=== PATIENT | female | born 1955 | race African-American/Black ===

== ENCOUNTER 2019-06-27 19:34 | Emergency (ER) | payer OTHER ==
--- OUTSIDE RECORDS SUMMARY | 2019-06-27 19:36 | XMS REPORT | Summary of Care ---
:[address] [facility] Address [address] [place] [address] Care Team Providers Name Role Phone Praful Coker MD Primary Care Provider Reason for Referral Radiology Services (Routine) Status Reason Specialty Diagnoses / Referred By Referred To Procedures Contact Contact Closed Diagnostic Diagnoses Breast screening Manny, Jason Radiology Procedures BI SELF-REFERRED SCREENING TOMOSYNTHESIS BILATERAL B [address] [place] [address] Radiology Services (Routine) Status Reason Specialty Diagnoses / Referred By Referred To Procedures Contact Contact Closed Diagnostic Diagnoses Breast screening Manny, Jason Radiology Procedures BI SELF-REFERRED SCREENING TOMOSYNTHESIS BILATERAL B [address] [place] [place] [address] Reason for Visit Radiology Services (Routine) Status Reason Specialty Diagnoses / Referred By Referred To Procedures Contact Contact Closed Diagnostic Diagnoses Breast screening Manny, Jason Radiology Procedures BI SELF-REFERRED SCREENING TOMOSYNTHESIS BILATERAL B [address] [place] [place] [address] Encounter Details Date Type Department Care Team Description 01/01/2019 Hospital Encounter [facility] Radiology Arrived [facility] [address] [place] [address] [place] [address] [place] [phone] Allergies Not on Filedocumented as of this encounter (statuses as of 01/02/2019) Medications Not on filedocumented as of this encounter (statuses as of 01/02/2019) Active Problems Not on filedocumented as of this encounter (statuses as of 01/02/2019) Social History Tobacco Use Types Packs/Day Years Used Date Never Assessed Sex Assigned at Date Recorded Not on file Job Start Date Occupation Industry Not on file Not on file Not on file Travel History Travel Start Travel End No recent travel history available. documented as of this encounter Last Filed Vital Signs Not on filedocumented in this encounter Plan of Treatment Health Maintenance Due Date Last Done Comments HEPATITIS C (HCV) SCREEN 1955 DTaP,Tdap,and Td Vaccines (1 - Tdap) 1972 COLONOSCOPY 2003 Zoster Recombinant Vaccine (SHINGRIX) 2003 (1 of 2) Medicare Wellness Visit 2018 Osteoporosis Screening 2018 PNEUMOCOCCAL VACCINES 65+ (1 of 2 - 2018 PCV13) MAMMOGRAM 12/05/2018 12/05/2017, 11/28/2016, 11/25/2015 INFLUENZA VACCINE (#1) 2018 documented as of this encounter Procedures Procedure Name Priority Date/Time Associated Comments Diagnosis BI SELF-REFERRED Routine 01/01/2019 10:35 Breast screening Results for this SCREENING AM CDT procedure are in TOMOSYNTHESIS the results BILATERAL section. documented in this encounter Results BI SELF-REFERRED SCREENING TOMOSYNTHESIS BILATERAL (01/01/2019 10:35 AM CDT) Specimen Narrative Performed At Examination: PACS BI SELF-REFERRED SCREENING TOMOSYNTHESIS BILATERAL History: Patient is 63 year old and is seen for:Routine .Hormone history includes other. No relevant surgical history has been documented for this patient. No relevant medical history has been documented for this patient. Computer-aided detection (CAD) utilized. Comparisons: 12/05/2017 BI SCREENING TOMOSYNTHESIS BILATERAL (No Change), 11/28/2016 SCREENING DIGITAL BREAST ADELAIDA (No Change), and 11/25/2015 DIGITAL MAMMOGRAM, SCREENING (No Change) Findings: The breasts are almost entirely fatty. Left There is an intramammary lymph node seen in the upper outer quadrant of the left breast in the posterior depth. Compared to the previous study, there are no significant changes. There are amorphous calcifications in a grouped distribution seen in the upper central region of the left breast in the middle depth. Compared to the previous study, there are no significant changes. Right There are rim calcifications seen in the right breast in the anterior depth. Compared to the previous study, there are no significant changes. Impression: No signs of malignancy. Recommendation: Annual mammographic follow-up - Left Annual mammographic follow-up - Left Annual mammographic follow-up - Right BI-RADS Category: Both 2 - Benign Performing Organization Address City/State/Zipcode Phone Number PACS documented in this encounter Visit Diagnoses Diagnosis Breast screening Breast screening, unspecified documented in this encounter Insurance Payer Benefit Plan / Subscriber ID Effective Dates Phone Address Type Group HUMANA - HUMANA [id number] 2018-[facility] Medicare Adv MANAGED MEDICARE ERS t O MEDICARE documented as of this encounter
--- OUTSIDE RECORDS SUMMARY | 2019-06-27 19:36 | XMS REPORT ---
:1955 Author Organization [facility] Address [address] [place] [address] Dr. Das[address] [place] [address] Care Team Providers Name Role Phone Unavailable Unavailable Unavailable Problems This patient has no known problems. Allergies, Adverse Reactions, Alerts This patient has no known allergies or adverse reactions. Medications This patient has no known medications.
[2019-06-27] MEDS ORDERED: NA CHLORIDE 0.9% 1,000 ML ONE (20:01)
[2019-06-27 20:15] LABS: Absolute Lymphocytes (CBC) 2.7 K/uL (0.7-4.9); Basophils % 0.9 % (0-1.3); Hematocrit 38.9 % (36.0-45.0); Lymphocytes % 36.5 % (15.3-44.8); MPV 10.5 fL (7.6-11.3); RBC Red Blood Cell Count 4.36 M/uL (3.86-4.86)
[2019-06-27 20:47] LABS: BUN Blood Urea Nitrogen 22 mg/dL (7-18); Bicarbonate 28 mmol/L (21-32); Sodium Level 132 mmol/L (136-145)
[2019-06-27 20:48] LABS: Potassium 4.2 mmol/L (3.5-5.1)
[2019-06-27 20:50] LABS: Glucose Level 641 mg/dL (74-106)
[2019-06-27] MEDS ORDERED: INSULIN -REGULAR HUMAN 50 UNIT/0.5 ML ML ONE ×2 (20:57→22:28)
[2019-06-27 21:21] LABS: Urine Blood NEGATIVE (NEG); Urine Glucose 2+ (NEG); Urine Protein NEGATIVE (NEG); Urine pH 5.5 (5.0-7.0)
[2019-06-27] MEDS ORDERED: NA CHLORIDE 0.9% 500 ML ONE (22:28)
[2019-06-27 23:39] LABS: Potassium 3.7 mmol/L (3.5-5.1)
--- NOTE | 2019-06-27 23:56 | ER ---
Nurse's Notes [facility] Name: Cristal Felder Age: 64 yrs Sex: Female : 1955 Arrival Date: 06/27/2019 Time: 19:38 Bed 8 Private MD: Praful Stevens R Diagnosis: Type 2 diabetes mellitus with hyperglycemia;Patient's intentional underdosing of medication regimen for other reason Presentation: 06/26 19:40 Chief complaint: Patient states: Sugar has been high for past two weeks, intermittently ll1 taking Metformin and glyburide. States her sugar read high today. No N/V/D. + urinary frequency. No fever. Coronavirus screen: The patient has NOT traveled to a country currently being monitored by the CDC within the last 14 days. Proceed with normal triage procedures. Ebola Screen: Patient denies travel to an Ebola-affected area in the 21 days before illness onset. Initial Sepsis Screen: Does the patient meet any 2 criteria? No. Patient's initial sepsis screen is negative. Does the patient have a suspected source of infection? No. Patient's initial sepsis screen is negative. Risk Assessment: Do you want to hurt yourself or someone else? Patient reports no desire to harm self or others. 19:40 Method Of Arrival: Ambulatory ll1 19:40 Acuity: MARGIE 3 ll1 19:40 Onset of symptoms was June 27, 2019. rr5 Historical: - Allergies: 19:44 PENICILLINS; ll1 19:44 Tylenol-Codeine #3; ll1 - PMHx: 19:44 Diabetes - NIDDM; Hypertension; ll1 - Immunization history:: Flu vaccine is up to date. - Social history:: Patient/guardian denies using alcohol, street drugs, tobacco products, Smoking status: unknown. Screenin:15 Abuse screen: Denies threats or abuse. Denies injuries from another. Nutritional rr5 screening: No deficits noted. Tuberculosis screening: No symptoms or risk factors identified. Fall Risk IV access (20 points). Total Thornton Fall Scale indicates No Risk (0-24 pts). Assessment: 19:55 General: Appears in no apparent distress. comfortable, Behavior is calm, cooperative, rr5 appropriate for age, Reports sugar high. 19:55 Pain: Denies pain. Neuro: Level of Consciousness is awake, alert, obeys commands, rr5 Oriented to person, place, time, situation, Appropriate for age. Cardiovascular: Capillary refill < 3 seconds Patient's skin is warm and dry. Respiratory: Airway is patent Respiratory effort is even, unlabored, Respiratory pattern is regular, symmetrical. GI: Abdomen is round. : Reports urinary frequency. EENT: No signs and/or symptoms were reported regarding the EENT system. Derm: Skin is intact, is healthy with good turgor, Skin temperature is warm. Musculoskeletal: Circulation, motion, and sensation intact. Capillary refill < 3 seconds. 20:10 Reassessment: CBG result HI ED provider informed. for the laboratory glucose test, rr5 specimen sent thru the BMP specimen. 21:00 Reassessment: Patient appears in no apparent distress at this time. Patient and/or rr5 family updated on plan of care and expected duration. Pain level reassessed. Patient is alert, oriented x 3, equal unlabored respirations, skin warm/dry/pink. insulin IV given for repeat CBG test after an hour. 22:05 Reassessment: Patient appears in no apparent distress at this time. Patient is alert, rr5 oriented x 3, equal unlabored respirations, skin warm/dry/pink. repeat CBG done. ED provider aware with order made and carried out. 23:20 Reassessment: Patient appears in no apparent distress at this time. Patient and/or rr5 family updated on plan of care and expected duration. Pain level reassessed. Patient is alert, oriented x 3, equal unlabored respirations, skin warm/dry/pink. awaiting for results. 06/27 00:10 Reassessment: Patient appears in no apparent distress at this time. Patient is alert, rr5 oriented x 3, equal unlabored respirations, skin warm/dry/pink. discharge instruction given and explained without complaints made. Patient states symptoms have improved. Vital Signs: 06/26 19:40 Pulse 85; Resp 18; Temp 98.2; Pulse Ox 100% ; Weight 90.72 kg; Height 5 ft. 3 in. ll1 (160.02 cm); Pain 0/10; 20:16 BP 130 / 82; Pulse 80; Resp 17; Pulse Ox 99% ; rr5 21:04 BP 136 / 59; Pulse 77; Resp 15; Pulse Ox 100% ; rr5 22:00 BP 123 / 59; Pulse 73; Resp 16; Pulse Ox 99% on R/A; rr5 23:00 BP 129 / 85; Pulse 79; Resp 16; Pulse Ox 98% on R/A; rr5 06/27 00:00 BP 131 / 75; Pulse 75; Resp 19; Temp 97.5; Pulse Ox 99% ; Pain 0/10; rr5 06/26 19:40 Body Mass Index 35.43 (90.72 kg, 160.02 cm) ll1 ED Course: 06/26 19:38 Patient arrived in ED. es 19:38 Praful Stevens MD is Private Physician. es 19:43 Triage completed. ll1 19:44 Keshia Baez FNP-C is PHCP. kb 19:44 Georgiana Guerin MD is Attending Physician. kb 19:44 Arm band placed on Patient placed in an exam room. ll1 19:55 Carlos Enrique Jay RN is Primary Nurse. rr5 20:03 Inserted saline lock: 20 gauge in right forearm, using aseptic technique. Blood rr5 collected. 20:16 Patient has correct armband on for positive identification. Placed in gown. Bed in low rr5 position. Call light in reach. Pulse ox on. NIBP on. 20:49 Notified ED physician of a critical lab result(s). BGL [id number] Notified primary nurse of jb4 BGL 641. 21:00 Urine collected: clean catch specimen, clear. rr5 21:29 PHCP role handed off by Keshia Baez FNP-C kb 21:29 Laura Espana FNP-C is PHCP. kb 22:39 No provider procedures requiring assistance completed. rr5 23:14 Repeat lab(s) drawn. by az, sent to lab. rr5 23:55 Praful Stevens MD is Referral Physician. snw 06/27 00:16 IV discontinued, intact, bleeding controlled, No redness/swelling at site. Pressure rr5 dressing applied. Administered Medications: 06/26 20:15 Drug: NS 0.9% 1000 ml Route: IV; Rate: 1000 ml; Site: right forearm; rr5 21:07 Follow up: Response: No adverse reaction; IV Status: Completed infusion; IV Intake: rr5 1000ml 21:00 Drug: Insulin Regular Human 10 units {Co-Signature: [email or web address] (Rafiq Franklin RN).} Route: IVP; rr5 Site: right forearm; 22:00 Follow up: Response: No adverse reaction; Blood sugar is lowered rr5 21:07 Drug: NS 0.9% 1000 ml Route: IV; Rate: 1000 ml; Site: right forearm; rr5 22:05 Follow up: Response: No adverse reaction; IV Status: Completed infusion; IV Intake: rr5 1000ml 22:29 Drug: Insulin Regular Human 5 units {Co-Signature: lp1 (Tanesha Deluca RN).} Route: IVP; rr5 Site: right forearm; 23:14 Follow up: Response: No adverse reaction; Blood sugar is lowered rr5 22:30 Drug: NS 0.9% 500 ml Route: IV; Rate: bolus; Site: right forearm; rr5 23:00 Follow up: Response: No adverse reaction; IV Status: Completed infusion; IV Intake: rr5 500ml Intake: 21:07 IV: 1000ml; Total: 1000ml. rr5 22:05 IV: 1000ml; Total: 2000ml. rr5 23:00 IV: 500ml; Total: 2500ml. rr5 Outcome: 23:55 Discharge ordered by MD. dodge 03/08 00:16 Discharged to home ambulatory. rr5 Condition: stable Discharge instructions given to patient, Instructed on discharge instructions, follow up and referral plans. Demonstrated understanding of instructions, follow-up care. 00:17 Patient left the ED. rr5 Signatures: Keshia Baez, JULIO-C BENCH WORKER HOLLOW HANDLE-Ckb Laura Espana FNP-C BENCH WORKER HOLLOW HANDLE-Shania Segovia James, RN RN jb4 Carlos Enrique Jay RN RN rr5 Jonah Borden RN RN ll1 Rafiq Franklin RN jb4 Tanesha Deluca RN lp1
--- NOTE | 2019-06-27 23:57 | EDPHYS ---
Physician Documentation [facility] Name: Cristal Felder Age: 64 yrs Sex: Female : 1955 Arrival Date: 06/27/2019 Time: 19:38 Bed 8 Private MD: Praful Stevens R ED Physician Georgiana Guerin HPI: 06/26 19:54 This 64 yrs old Black Female presents to ER via Ambulatory with complaints of Low Blood kb Sugar. 19:54 The patient or guardian reports hyperglycemia, that was potentially precipitated by kb forgetting medications. Onset: The symptoms/episode began/occurred 2 week(s) ago. Associated signs and symptoms: Pertinent positives: polydipsia, polyuria. The patient has not experienced similar symptoms in the past. The patient has not recently seen a physician. "My sugar is high. I haven't been taking my medicine like I'm supposed to and haven't been checking my sugar. Tonight something told me to check it and it just read HIGH." Reports polydipsia and polyuria. Historical: - Allergies: 19:44 PENICILLINS; ll1 19:44 Tylenol-Codeine #3; ll1 - PMHx: 19:44 Diabetes - NIDDM; Hypertension; ll1 - Immunization history:: Flu vaccine is up to date. - Social history:: Patient/guardian denies using alcohol, street drugs, tobacco products, Smoking status: unknown. ROS: 19:54 Constitutional: Negative for fever, chills, and weight loss, Neck: Negative for injury, kb pain, and swelling, Cardiovascular: Negative for chest pain, palpitations, and edema, Respiratory: Negative for shortness of breath, cough, wheezing, and pleuritic chest pain, Abdomen/GI: Negative for abdominal pain, nausea, vomiting, diarrhea, and constipation, Back: Negative for injury and pain, MS/Extremity: Negative for injury and deformity, Skin: Negative for injury, rash, and discoloration, Neuro: Negative for headache, weakness, numbness, tingling, and seizure. Exam: 19:54 Constitutional: This is a well developed, well nourished patient who is awake, alert, kb and in no acute distress. Head/Face: Normocephalic, atraumatic. Neck: Trachea midline, no thyromegaly or masses palpated, and no cervical lymphadenopathy. Supple, full range of motion without nuchal rigidity, or vertebral point tenderness. No Meningismus. Chest/axilla: Normal chest wall appearance and motion. Nontender with no deformity. No lesions are appreciated. Cardiovascular: Regular rate and rhythm with a normal S1 and S2. No gallops, murmurs, or rubs. Normal PMI, no JVD. No pulse deficits. Respiratory: Lungs have equal breath sounds bilaterally, clear to auscultation and percussion. No rales, rhonchi or wheezes noted. No increased work of breathing, no retractions or nasal flaring. Abdomen/GI: Soft, non-tender, with normal bowel sounds. No distension or tympany. No guarding or rebound. No evidence of tenderness throughout. Back: No spinal tenderness. No costovertebral tenderness. Full range of motion. Skin: Warm, dry with normal turgor. Normal color with no rashes, no lesions, and no evidence of cellulitis. MS/ Extremity: Pulses equal, no cyanosis. Neurovascular intact. Full, normal range of motion. Neuro: Awake and alert, GCS 15, oriented to person, place, time, and situation. Cranial nerves II-XII grossly intact. Motor strength 5/5 in all extremities. Sensory grossly intact. Cerebellar exam normal. Normal gait. Vital Signs: 19:40 Pulse 85; Resp 18; Temp 98.2; Pulse Ox 100% ; Weight 90.72 kg; Height 5 ft. 3 in. ll1 (160.02 cm); Pain 0/10; 20:16 BP 130 / 82; Pulse 80; Resp 17; Pulse Ox 99% ; rr5 21:04 BP 136 / 59; Pulse 77; Resp 15; Pulse Ox 100% ; rr5 22:00 BP 123 / 59; Pulse 73; Resp 16; Pulse Ox 99% on R/A; rr5 23:00 BP 129 / 85; Pulse 79; Resp 16; Pulse Ox 98% on R/A; rr5 06/27 00:00 BP 131 / 75; Pulse 75; Resp 19; Temp 97.5; Pulse Ox 99% ; Pain 0/10; rr5 06/26 19:40 Body Mass Index 35.43 (90.72 kg, 160.02 cm) ll1 MDM: 06/26 19:44 Patient medically screened. kb 19:56 Data reviewed: vital signs, nurses notes. Data interpreted: Pulse oximetry: on room air kb is 100 %. Interpretation: normal. 21:04 Transition of care: After a detail discussion of the patient's case, care is kb transferred to Laura Espana [facility]. 06/26 19:47 Order name: CBC with Diff; Complete Time: 20:21 kb 06/26 19:47 Order name: Basic Metabolic Panel; Complete Time: 20:53 kb 06/26 19:47 Order name: Acetone, Serum; Complete Time: 20:53 kb 06/26 20:17 Order name: Glucose, Ancillary Testing; Complete Time: 20:17 EDMS 06/26 20:36 Order name: Glucose, Ancillary Testing; Complete Time: 20:37 EDMS 06/26 21:02 Order name: Urine Dipstick--Ancillary (enter results); Complete Time: 21:24 ar5 06/26 22:25 Order name: Glucose, Ancillary Testing; Complete Time: 22:27 EDMS 06/26 23:08 Order name: Chem 7; Complete Time: 23:49 rr5 06/26 23:22 Order name: Glucose, Ancillary Testing; Complete Time: 23:33 EDMS 06/26 19:47 Order name: IV Start; Complete Time: 20:15 kb 06/26 19:47 Order name: Blood Glucose Level; Complete Time: 20:15 kb 06/26 19:47 Order name: Urine Dipstick-Ancillary (obtain specimen); Complete Time: 21:02 kb 06/26 22:28 Order name: Misc. Order: Chem 7 post completion of bolus please; Complete Time: 23:14 snw Administered Medications: 20:15 Drug: NS 0.9% 1000 ml Route: IV; Rate: 1000 ml; Site: right forearm; rr5 21:07 Follow up: Response: No adverse reaction; IV Status: Completed infusion; IV Intake: rr5 1000ml 21:00 Drug: Insulin Regular Human 10 units {Co-Signature: jb4 (Rafiq Franklin RN).} Route: IVP; rr5 Site: right forearm; 22:00 Follow up: Response: No adverse reaction; Blood sugar is lowered rr5 21:07 Drug: NS 0.9% 1000 ml Route: IV; Rate: 1000 ml; Site: right forearm; rr5 22:05 Follow up: Response: No adverse reaction; IV Status: Completed infusion; IV Intake: rr5 1000ml 22:29 Drug: Insulin Regular Human 5 units {Co-Signature: lp1 (Tanesha Deluca RN).} Route: IVP; rr5 Site: right forearm; 23:14 Follow up: Response: No adverse reaction; Blood sugar is lowered rr5 22:30 Drug: NS 0.9% 500 ml Route: IV; Rate: bolus; Site: right forearm; rr5 23:00 Follow up: Response: No adverse reaction; IV Status: Completed infusion; IV Intake: rr5 500ml Disposition: 06/27/19 23:55 Discharged to Home. Impression: Type 2 diabetes mellitus with hyperglycemia, Patient's intentional underdosing of medication regimen for other reason. - Condition is Stable. - Discharge Instructions: Diabetes and Sick Day Management, High-Fiber Diet, Hyperglycemia, Form - Daily Diabetes Record, Blood Glucose Monitoring, Adult. - Medication Reconciliation Form, Thank You Letter, Antibiotic Education, Prescription Opioid Use form. - Follow up: Emergency Department; When: As needed; Reason: Worsening of condition. Follow up: Praful Stevens MD; When: 2 - 3 days; Reason: Recheck today's complaints, Continuance of care, Re-evaluation by your physician. Addendum: 06/29/2019 01:31 Co-signature as Attending Physician, Georgiana Guerin MD. m a2 Signatures: Dispatcher [employer] EDMS Keshia Baez, SUPERINTENDENT FISH HATCHERY-C SUPERINTENDENT FISH HATCHERY-Ckb Laura Espana FNP-C SUPERINTENDENT FISH HATCHERY-Csnw Georgiana Guerin MD MD ma2 Carlos Enrique Jay, RN RN rr5 Jonah Borden RN RN ll1 Rafiq Franklin RN jb4 Tanesha Deluca RN lp1 Corrections: (The following items were deleted from the chart) 06/27 00:17 06/26 23:55 06/27/2019 23:55 Discharged to Home. Impression: Type 2 diabetes mellitus rr5 with hyperglycemia; Patient's intentional underdosing of medication regimen for other reason. Condition is Stable. Forms are Medication Reconciliation Form, Thank You Letter, Antibiotic Education, Prescription Opioid Use. Follow up: Emergency Department; When: As needed; Reason: Worsening of condition. Follow up: Praful Stevens; When: 2 - 3 days; Reason: Recheck today's complaints, Continuance of care, Re-evaluation by your physician. snw
[2019-06-28 00:49] VITALS: BP 131/75; TEMP 97.5; O2SAT 99
== END 2019-06-28 00:17 | disposition home or self-care (01) ==
LOC: ER 19:34
DX: E11.65 Type 2 diabetes mellitus with hyperglycemia (principal); Z91.128 Patient's intentional underdosing of medication regimen for other reason; I10 Essential (primary) hypertension; Z88.0 Allergy status to penicillin; Z88.5 Allergy status to narcotic agent
CPT/HCPCS: 96361; 85025; 80048 ×2; 36415; 82010; 82947 ×4; 81003; 96374; 99284; J7040; J7030

== ENCOUNTER 2020-05-23 22:12 | Emergency (ER) | payer OTHER ==
--- OUTSIDE RECORDS SUMMARY | 2020-05-23 22:14 | XMS REPORT | Summary of Care ---
:1955 Author Organization [facility] - Health Address [address] [place] [address] Care Team Providers Name Role Phone Praful Coker MD Primary Care Provider Encounter Details Date Type Department Care Team Description 05/12/2020 Orders Only [facility] Doctor Unassigned, No [facility] [place] [address] [address] [place] [address] Allergies Not on Filedocumented as of this encounter (statuses as of 05/13/2020) Medications Not on filedocumented as of this encounter (statuses as of 05/13/2020) Active Problems Not on filedocumented as of this encounter (statuses as of 05/13/2020) Social History Tobacco Use Types Packs/Day Years Used Date Never Assessed Sex Assigned at Date Recorded Not on file documented as of this encounter Last Filed Vital Signs Not on filedocumented in this encounter Plan of Treatment Date Type Specialty Care Team Description 05/18/2020 Office Visit Endocrinology Diabetes & Kael Fagan MD Metabolism [address] [place] [address] Health Maintenance Due Date Last Done Comments HEPATITIS C (HCV) SCREEN 1955 Depression Screening 1965 DTaP,Tdap,and Td Vaccines (1 - 1972 Tdap) COLON CANCER SCREENING ANNUAL 2003 FIT/FOBT COLON CANCER SCREENING FIT DNA 2003 EVERY 3 YEARS COLON CANCER SCREENING 2003 SIGMOIDOSCOPY EVERY 5 YEARS COLONOSCOPY 2003 Colorectal Cancer Screening 2003 Zoster Recombinant Vaccine 2003 (SHINGRIX) (1 of 2) Medicare Wellness Visit 2018 Osteoporosis Screening 2018 PNEUMOCOCCAL VACCINES 65+ (1 of 1 2018 - PPSV23) INFLUENZA VACCINE (#1) 2019 Breast Cancer Screening 12/29/2020 12/30/2019, 01/01/2019, (MAMMOGRAM) 12/05/2017, Additional history exists documented as of this encounter Procedures Procedure Name Priority Date/Time Associated Diagnosis Comme nts EXTERNAL PROVIDER Routine 05/12/2020 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
--- OUTSIDE RECORDS SUMMARY | 2020-05-23 22:14 | XMS REPORT | Continuity of Care Document ---
:1955 Author Organization [facility] t Address [address] [place] [address] Dr. James [address] [place] [address] Care Team Providers Name Role Phone Rylan TAPIA Attending Clinician Problems This patient has no known problems. Allergies, Adverse Reactions, Alerts This patient has no known allergies or adverse reactions. Medications This patient has no known medications. Procedures This patient has no known procedures. Encounters Start End Encounter Admission Attending Care Care Encounter Source Date/Time Date/Time Type Type Clinicians Facility Department ID 2020-05-18 2020-05-18 Office MACHELLE Fagan [id number] 10:01:30 11:51:55 Visit Heber Madsen [id number] Ramesh [id number] Brittani [id number] [facility] [address] Results This patient has no known results.
--- OUTSIDE RECORDS SUMMARY | 2020-05-23 22:14 | XMS REPORT | Summary of Care ---
:1955 Author Organization [facility] Address [address] [place] [address] Care Team Providers Name Role Phone Praful Coker MD Primary Care Provider [phone] Reason for Visit Reason Comments New Patient calcium Auth/Cert Status Reason Specialty Diagnoses / Procedures Referred By Reina el To Contact Contact Phlebotomy Diagnoses Acquired hypothyroidism Adc Pob Lab Draw Procedures TSH,ETC Professional Office [address], [address] [place] [address] Fax: Encounter Details Date Type Department Care Team Description 05/18/2020 Office Visit [facility] Heber Fagan MD Hypercalcemia (Primary Dx); Endocrinology- [address] [place] [address] Acquired hypothyroidism; [facility] Vitamin D deficiency; [address], [place] Control led type 2 diabetes mellitus without complication, without long-term current use of insulin; [facility], [address] [address] Essential hypertension [place], [place] [phone] [address] Allergies Active Allergy Reactions Severity Noted Date Comments Penicillin Hives 05/18/2020 Acetaminophen-Codeine Hives 05/18/2020 documented as of this encounter (statuses as of 05/18/2020) Medications Medication Sig Dispensed Refills Start End Date Status Date metformin ER 500 TAKE 3 TABLETS BY 0 Active mg 24 hr tablet MOUTH EVERY DAY 0 WITH FOOD levothyroxine 100 TAKE 1 TABLET BY 0 Active mcg tablet MOUTH EVERY DAY IN 0 THE MORNING ON EMPTY STOMACH glimepiride 4 mg ORAL TAKE 1 TABLET 0 Active tablet BY MOUTH TWICE A 0 DAY ORALLY 90 ergocalciferol, TAKE 1 CAPSULE BY 0 Active vitamin d2, 1,250 MOUTH 2 TIMES A 0 mcg (50,000 unit) WEEK capsule TRULICITY 1.5 SUBCUTANEOUS 0 Act freya mg/0.5 mL PnIj INJECT 1.5 MG ONCE 0 A WEEK SUBCUTANEOUSLY ACCU-CHEK GUIDE DIRECTED 0 Ac tive TEST STRIPS strip TESTING 2 X DAILY 0 IN VITRO losartan 100 mg Take 1 tablet by 90 tablet 1 Active tabletIndications mouth daily. 1 : Essential hypertension losartan-hydrochl Take 1 tablet by 0 05/18 Discontinued orothiazide mouth daily. 0 21 (Form ulary 100-12.5 mg per escobar ge) tablet documented as of this encounter (statuses as of 05/18/2020) Active Problems Not on filedocumented as of this encounter (statuses as of 05/18/2020) Social History Tobacco Use Types Packs/Day Years Used Date Never Smoker Alcohol Use Drinks/Week oz/Week Comments Never Alcohol Habits Answer Date Recorded How often do you have a drink containing alcohol? Never 05/18/2020 How many drinks containing alcohol do you have on a typical Not asked day when you are drinking? How often do you have six or more drinks on one occasion? 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 documented as of this encounter Last Filed Vital Signs Vital Sign Reading Time Taken Comments Blood Pressure 102/67 05/18/2020 10:45 AM SALES AND MARKETING EXECUTIVE Pulse 81 05/18/2020 10:45 AM SALES AND MARKETING EXECUTIVE Temperature - - Respiratory Rate 18 05/18/2020 10:45 AM SALES AND MARKETING EXECUTIVE Oxygen Saturation 99% 05/18/2020 10:45 AM SALES AND MARKETING EXECUTIVE Inhaled Oxygen Concentration - - Weight 94.9 kg (209 lb 3.2 oz) 05/18/2020 10:45 AM SALES AND MARKETING EXECUTIVE Height 157.5 cm (5' 2") 05/18/2020 10:45 AM SALES AND MARKETING EXECUTIVE Body Mass Index 38.26 05/18/2020 10:45 AM SALE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 encounter Patient Instructions Patient InstructionsHeber Fagan MD - 05/18/2020 10:30 AM SALES AND MARKETING EXECUTIVE Patient Education You have been diagnosed with hypercalcemia. That means you have too much calcium in your blood. Calcium is a mineral. It helps grow your bones and teeth. It also controls your heart rhythm and lets your muscles contract. Hypercalcemia is often the result of other problems. These overactive glands, unhealthy bones, long-term bed rest, and some kinds of tumors or cancers. Home care Ask your healthcare provider how much fluid you should drink. You may need to drink 3 quarts up to 1gallon (3 to 4 liters) of fluid every day. Drink as much as directed by your healthcare provider. Keep track of how much fluid you drink. For example, put a full gallon of water in your refrigerator each morning. Make sure you drink it throughout the day. Check your progress. You will need to cut back on foods that are high in calcium. Read food labels. Dont buy dairy products with added calcium. Limit or stop your intake of: Milk Cheeses Yogurt Pudding Ice cream Calcium-fortified orange juice Calcium-fortified ipgse-eo-ora cereals Canned salmon or sardines with soft bones Also: Don't take antacid medicines if they list calcium as an ingredient. Many antacids contain calcium. Some contain magnesium and no calcium. Dont limit your salt intake. Get exercise. If your hypercalcemia was caused by long-term bed rest, try to increase your activity if possible. Resume your normal activities as directed by your healthcare provider. Take your medicines exactly as directed. Tell your healthcare provider about any other medicines you are taking. This includes veic-irh-djzorvw or herbal medicines and supplements. Follow-up Keep all appointments for blood tests and follow-up care. Your healthcare provider needs to watch your condition closely. When to call your healthcare provider Call your healthcare provider right away if you have any of these: Extreme fatigue Loss of appetite Trouble urinating or pain when urinating Blood in your urine Vomiting or diarrhea Increased thirst Irregular heartbeat Dizziness or lightheadedness Depression Confusion Yasuu last reviewed this educational content on 07/22/201919996986-7175 [employer]. All rights reserved. This information is not intended as a substitute for professional medical care. Always follow your healthcare professional's instructions. 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 She used to see Dr Worrell and was put on ?Cinacalcet, which she discontinued few months ago due to cost. She has not following Dr Worrell for 1.5 years since she was out of network Patient has recently established with new PCP Dr Coker and had annual physical done on 04/20/20. Labs at that time showed elevated calcium at 11.4 Patient denies thirsty, frequent urination and mentation change. No recent weight loss. Denies hx of osteoporosis or kidney stone Patient has hx of vitamin d deficiency and was put on high dose vitamin D 2 50,000 IU twice a weekFor past 1.5 years She is not on calcium supplement . Patient like to eat cheese and currently taking HCTZ for HTN Hypothyroid ; taking ;evothyroxine 100mcg daily for years . However, she changed to take levothyroxine with food and other meds few months ago Diabetes Mellitus Type 2. Patient's diabetes is non complicated Patient usually checks blood glucoses 1-2 times a day. Patient has not brought in the blood sugars to be reviewed today. Average blood sugar at breakfast 120-140. The patient is not having problems with hypoglycemia. Patient is compliant with medication regimen. Taking glimepiride 4mg BID, metformin Er 500mg TID and Trulicity 1.5mgweekly Patient is compliant with diet/exercise regimen. DIABETIC HEALTH MAINTENANCE Last Ophthalmology visit was 03/2020 Patient on MANJIT/ARB therapy - Yes Patient on ASA therapy - Yes. Patient on Statin/Fibrate therapy - No. Patient instructed about daily feet exams, last sensation exam was 05/18/2020 . Patient has received Nutrition/Diet/Diabetes Education on 05/18/2020 HISTORY No past medical history on file. No past surgical history on file. Family History Problem Relation Age of Onset Breast Cancer Maternal Aunt Diabetes Mother Diabetes Sister Social History Socioeconomic History Marital status: Spouse name: Not on file Number of children: Not on file Years of education: Not on file Highest education level: Not on file Occupational History Not on file Social Needs Financial resource strain: Not on file Food insecurity Worry: Not on file Inability: Not on file Transportation needs Medical: Not on file Non-medical: Not on file Tobacco Use Smoking status: Never Smoker Substance and Sexual Activity Alcohol use: Never Frequency: Never Drug use: Never Sexual activity: Not on file Lifestyle Physical activity Days per week: Not on file Minutes per session: Not on file Stress: Not on file Relationships Social connections Talks on phone: Not on file Gets together: Not on file Attends sabianist service: Not on file Active member of club or organization: Not on file Attends meetings of clubs or organizations: Not on file Relationship status: Not on file Intimate partner violence Fear of current or ex partner: Not on file Emotionally abused: Not on file Physically abused: Not on file Forced sexual activity: Not on file Other Topics Concern Not on file Social History Narrative Not on file REVIEW OF SYSTEMS Constitutional: + weight gain, denies fatigue and hair loss Eyes: denies blurry vision, denies diplopia and denies pain. Neck: denies pain, denies swollen glands Cardiovascular: denies chest pain , denies irregular pulse and denies palpitations. Respiratory: denies dyspnea on exertion and denies shortness of breath. Gastrointestinal: denies abdominal pain, denies constipation and denies diarrhea. Genitourinary: denies burning and denies dysuria. Musculoskeletal: denies back pain, denies muscle pain and denies weakness. Skin: denies dry skin and denies hair changes. Neuro: denies numbness , denies tingling and denies tremor. Psych: negative. Endocrine: denies goiter, denies hair loss, denies intolerance to cold, denies intolerance to heat, denies polydipsia, denies polyphagia and denies polyuria. PHYSICAL EXAM BP 102/67 (BP Location: Left arm, Patient Position: Sitting) | Pulse 81 | Resp 18 | Ht 5' 2" (1.575 m) | Wt 209 lb 3.2 oz (94.9 kg) | SpO2 99% | BMI 38.26 kg/m General: alert, oriented times three, no apparent distress, appearing age appropriate. Skin: skin color and turgor are normal Head: normocephalic, no masses, lesions, tenderness or abnormalities. Eyes: anicteric sclera Neck: +acanthosis nigricans Thyroid: normal size and consistency to palaption Lungs: good diaphragmatic excursion, lungs clear to auscultation bilaterally. Heart: regular rate and rhythm, no murmurs, gallops or rubs. Abdomen: abdomen soft, + obese. Neuro: unremarkable without focal findings. Extremities/Musculoskeletal: no cyanosis, no edema . Sensory exam of the foot is normal. Monofilament exam with sensation Right: 5/5, Left: 5/5. Lesions absent Ulcers Absent Peripheral pulses present 2+. ASSESSMENT/PLAN 1. Hypercalcemia Status : mildly elevated and patient is asymptomatic at this point Concerns HCTZ as well as calcium rich food intake may contributes to her hypercalcemia Plan Obtain etiology work up - INTACT PTH [facility]; Future - COMP. METABOLIC PANEL (13835); Future - VITAMIN D, 25-OH; Future Will start a trial to hold off HCTZ as well as reduced calcium rich food intake to monitor improvement inhypercalcemia 2. Acquired hypothyroidism Started : uncontrolled recent ly with TSH at 6.15 on 04/20/20 per outside lab secondary to not taking levothyroxine properly - T4 FREE; Future - TRIIODOTHYRONINE; Future 3. Vitamin D deficiency Status; unknown, no recent lab per patient Plan Continue vitamin D 2 50,000 IU twice a week - VITAMIN D, 25-OH; Future 4. Controlled type 2 diabetes mellitus without complication, without long-term current use of insulin At target Reviewed results 04/20/20 A1C=6.5 -glucose range: AM fasting at target - without hypoglycemia -complication: none -medication limitation: nne -diet: reduced carbs intake -exercise:active Plan -urged compliance with diet/exercise Continue glimepiride 4mg BID, metformin Er 500mg TID and Trulicity 1.5mg weekly 5. Essential hypertension Status: BP running low at home per patient Plan Discontinue losartan-HCTZ 100/12.5mg daily Start - losartan 100 mg tablet; Take 1 tablet by mouth daily. Dispense: 90 tablet; Refill: 1 ysha Ordoñez MA - 05/18/2020 10:30 AM CST Cristal Felder is a 65 year old female; here to get established. Patient is referred by for Calcium Current Outpatient Medications on File Prior to Visit Medication Sig Dispense Refill ACCU-CHEK GUIDE TEST STRIPS strip DIRECTED TESTING 2 X DAILY IN VITRO ergocalciferol, vitamin d2, 1,250 mcg (50,000 unit) capsule TAKE 1 CAPSULE BY MOUTH 2 TIMES A WEEK glimepiride 4 mg tablet ORAL TAKE 1 TABLET BY MOUTH TWICE A DAY ORALLY 90 levothyroxine 100 mcg tablet TAKE 1 TABLET BY MOUTH EVERY DAY IN THE MORNING ON EMPTY STOMACH losartan-hydrochlorothiazide 100-12.5 mg per tablet Take 1 tablet by mouth daily. metformin ER 500 mg 24 hr tablet TAKE 3 TABLETS BY MOUTH EVERY DAY WITH FOOD TRULICITY 1.5 mg/0.5 mL PnIj SUBCUTANEOUS INJECT 1.5 MG ONCE A WEEK SUBCUTANEOUSLY No current facility-administered medications on file prior to visit. Level of pain none Location of pain n/a Appearance is healthy alert and cooperative. Medications and allergies reviewed with patient Patient's last eye exam was due. Patient's last flu vaccination was 2019. Patient's last pneumococcal vaccination was 2019. Patient is a diabetic, so I did not request shoes to be removed for foot exam. 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 Name Type Priority Associated Diagnoses Order S chedule INTACT [facility] Routine Hypercalcemia Ex pected: 05/18/2020, Expires: 2021 Health Maintenance Due Date Last Done Comments HEPATITIS C (HCV) SCREEN 1955 Depression Screening 1965 SARS-CoV-2 (COVID-19) Vaccine (1 1969 of 2) FOOT EXAM 1971 DTaP,Tdap,and Td Vaccines (1 - 1972 Tdap) [...] 2018 - PPSV23) INFLUENZA VACCINE (#1) 2019 HgA1C 10/19/2020 04/20/2020 Breast Cancer Screening 12/29/2020 12/30/2019, 01/01/2019, (MAMMOGRAM) 12/05/2017, Additional history exists EYE EXAM 03/29/2021 03/29/2020 CREATININE (SERUM) 04/20/2021 04/20/2020 LDL-C 04/20/2021 04/20/2020 URINE MICROALBUMIN 04/20/2021 04/20/2020 documented as of this encounter Results TRIIODOTHYRONINE (05/18/2020 12:28 PM SALES AND MARKETING EXECUTIVE) Pathologist Sig nature T3 78.0 (L) 97.0 - 170.0 ng/dL [facility] ES Specimen Blood Performing Organization Address City/State/Zipcode Phone Number [facility] CLIA: [id number] [place] [address] [place] [address] Blvd T4 FREE (05/18/2020 12:28 PM SALES AND MARKETING EXECUTIVE) Pathologist Sig nature FREE T4 0.97 0.78 - 2.20 ng/dL: [facility] Specimen Blood Performing Organization Address City/State/Zipcode Phone Number [facility] CLIA: [id number] [place] [address] VITAMIN D, 25-OH (05/18/2020 12:28 PM SALES AND MARKETING EXECUTIVE) Pathologist Sig nature VIT D 25OH 80 25 - 80 ng/mL [facility] Specimen Blood Narrative Performed At Deficiency: <20 ng/mL [facility] Insufficiency: 20-24 ng/mL Optimal: 25-80 ng/mL Performing Organization Address City/State/Zipcode Phone Number [facility] CLIA: [id number] [place] [address] [place] [address] COMP. METABOLIC PANEL (69744) (05/18/2020 12:28 PM SALES AND MARKETING EXECUTIVE) NA 139 135 - 145 [facility] mmol/L [facility] K 5.1 (H) 3.5 - 5.0 [facility] mmol/L [facility] CL 101 98 - 108 mmol/L [facility] CO2 TOTAL 29 23 - 31 mmol/L [facility] AGAP 9 2 - 16 [facility] BUN 27 (H) 7 - 23 mg/dL [facility] GLUCOSE 128 (H) 70 - 110 mg/dL [facility] CREATININE 1.01 0.50 - 1.04 [facility] mg/dL [facility] TOTAL BILI 0.5 0.1 - 1.1 mg/dL [facility] CALCIUM 11.1 (H) 8.6 - 10.6 [facility] mg/dL [facility] T PROTEIN 7.7 6.3 - 8.2 g/dL [facility] ALBUMIN 4.5 3.5 - 5.0 g/dL [facility] ALK PHOS 42 34 - 122 U/L [facility] ALTv 25 5 - 35 U/L [facility] AST(SGOT) 24 13 - 40 U/L [facility] eGFR Calculation 54.7 mL/min/1.73m2 [facility] ([facility] LAB[facility]ATORY [place]) eGFR Calculation 66.3 mL/min/1.73m2 [facility] LABORATORY Specimen Blood Narrative Performed At Association of Glomerular Filtration Rate (GFR) [facility] and Staging of Kidney Disease* + + +- + | GFR (mL/min/1.73 m2) | With Kidney Damage | Without Kidney Damage + + +- + | >90 | Stage one | Normal + + +- + | 60-89 | Stage two | Decreased GFR + + +- + | 30-59 | Stage three | Stage three + + +- + | 15-29 | Stage four | Stage four + + +- + | <15 (or dialysis) | Stage five | Stage five + + +- + *Each stage assumes the associated GFR level has been in effect for at least three months. Stages 1 to 5, with or without kidney disease, indicate chronic kidney disease. Notes: Determination of stages one and two (with eGFR >59mL/min/1.73 m2) requires estimation of kidney damage for at least three months as defined by structural or functional abnormalities of the kidney, manifested by either: Pathological abnormalities or Markers of kidney damage (including abnormalities in the composition of the blood or urine or abnormalities in imaging tests). Performing Organization Address City/State/Zipcode Phone Number [facility] CLIA: [id number] [place] [address] documented in this encounter Visit Diagnoses Diagnosis Hypercalcemia - Primary Acquired hypothyroidism Unspecified hypothyroidism Vitamin D deficiency Unspecified vitamin D deficiency Controlled type 2 diabetes mellitus with out complication, without long-term current use of insulin Essential hypertension Unspecified essential hypertension documented in this encounter Insurance Payer Benefit Plan / Subscriber ID Effective Phone Address T e [facility] [id number] 2020-Prese Medic are [facility] [employer] [facility] MEDICARE HMO documented as of this encounter
--- OUTSIDE RECORDS SUMMARY | 2020-05-23 22:14 | XMS REPORT | Summary of Care ---
:[address] 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 [facility] Heber Fagan M D [address] [place] [address] Hypercalcemia; Professional Office 2, [facility] Lab Vitamin D deficiency; Building Phlebotomy Acquired hypothyroidism Lab Professional Office [address] , [address] [place] [address] Allergies Active Allergy Reactions Severity Noted Date Comments Penicillin Hives 05/18/2020 Acetaminophen-Codeine Hives 05/18/2020 documented as of this encounter (statuses as of 05/18/2020) Medications Medication Sig Dispensed Refills Start Date End Date Status metformin ER 500 mg TAKE 3 TABLETS BY 0 04/18/2020 Active 24 hr tablet MOUTH EVERY DAY WITH FOOD levothyroxine 100 TAKE 1 TABLET BY 0 02/19/2020 Active mcg tablet MOUTH EVERY DAY IN THE MORNING ON EMPTY STOMACH glimepiride 4 mg ORAL TAKE 1 TABLET 0 04/18/2020 Active tablet BY MOUTH TWICE A DAY ORALLY 90 ergocalciferol, TAKE 1 CAPSULE BY 0 04/18/2020 Active vitamin d2, 1,250 MOUTH 2 TIMES A WEEK mcg (50,000 unit) capsule TRULICITY 1.5 mg/0.5 SUBCUTANEOUS INJECT 0 0 Active mL PnIj 1.5 MG ONCE A WEEK SUBCUTANEOUSLY ACCU-CHEK GUIDE TEST DIRECTED TESTING 0 0 Active STRIPS strip 2 X DAILY IN VITRO losartan 100 mg Take 1 tablet by 90 tablet 1 05/18/2020 Active tabletIndications: mouth daily. 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 documented as of this encounter Last Filed Vital Signs Not on filedocumented in this encounter Nursing Notes Sara Tan C - 05/18/2020 1:15 PM CST Venipuncture collection performed by clean technique on the right anticubitus. Total of 1 attempts were made. Slight pressure and a bandage/dressing were applied to the site(s). The patient experiencedno complications. The following specimens were processed according to instructions and sent to [facility] laboratories per lab order on [id number]: LT BLUE 4 SST RED LAV PPT DK GREEN (LiHep) DK GREEN (SodH) JC DK BLUE (K2) DK BLUE (S) ACD Blood Culture NIPT/NTD documented in this encounter Plan of Treatment Date Type Specialty Care Team Description 09/13/2020 Office Visit Endocrinology Diabetes & Kael Fagan MD Metabolism [address] [place] [address] [phone] Health Maintenance Due Date Last Done Comments HEPATITIS C (HCV) SCREEN 1955 HgA1C 1956 CREATININE (SERUM) 1963 EYE EXAM 1963 LDL-C 1963 URINE MICROALBUMIN 1963 Depression Screening 1965 SARS-CoV-2 (COVID-19) Vaccine (1 [...] history exists documented as of this encounter Results Not on filedocumented in this encounter Visit Diagnoses Diagnosis Hypercalcemia Vitamin D deficiency Unspecified vitamin D deficiency Acquired hypothyroidism Unspecified hypothyroidism documented in this encounter Insurance Payer Benefit Plan / Subscriber ID Effective Phone Address T ype Group Dates [facility] [id number] 2020-Prese Medic are Adv [facility]ALTH[facility] - HEALTHCARE nt HMO MANAGED MEDICARE ADV MEDICARE HMO documented as of this encounter
--- OUTSIDE RECORDS SUMMARY | 2020-05-23 22:14 | XMS REPORT | Summary of Care ---
:1955 Author Organization [facility] Address [address] [place] [id number] Care Team Providers Name Role Phone Praful Coker MD Primary Care Provider [phone] Reason for Visit Reason Comments New Patient calcium Auth/Cert Status Reason Specialty Diagnoses / Procedures Referred By Reina el To Contact Contact Phlebotomy Diagnoses Acquired hypothyroidism Adc Pob Lab Draw Procedures TSH,ETC Professional Office [address]len[address], [address] [place] [address] Fax: Encounter Details Date Type Department Care Team Description 05/18/2020 Office Visit [facility] Heber Fagan MD Hypercalcemia (Primary Dx); Endocrinology- [address] [place] [address] Acquired hypothyroidism; [facility] Vitamin D deficiency; [address] [place], [place] Control led type 2 diabetes mellitus without complication, without long-term current use of insulin; [facility], [address] [address] Essential hypertension [place], [place] [phone] Allergies Active Allergy Reactions Severity Noted [...] with No / Unsure 05/18/2020 9:57 AM CAR ATTENDANT someone who was confirmed or suspected to have Coronavirus / COVID-19? documented as of this encounter Last Filed Vital Signs Vital Sign Reading Time Taken Comments Blood Pressure 102/67 05/18/2020 10:45 AM CAR ATTENDANT Pulse 81 05/18/2020 10:45 AM CAR ATTENDANT Temperature - - Respiratory Rate 18 05/18/2020 10:45 AM CAR ATTENDANT Oxygen Saturation 99% 05/18/2020 10:45 AM CAR ATTENDANT Inhaled Oxygen Concentration - - Weight 94.9 kg (209 lb 3.2 oz) 05/18/2020 10:45 AM CAR ATTENDANT Height 157.5 cm (5' 2") 05/18/2020 10:45 AM CAR ATTENDANT Body Mass Index 38.26 05/18/2020 10:45 AM CAR ATTENDANT documented in this encounter Patient Instructions Patient InstructionsHeber Fagan MD - 05/18/2020 10:30 AM CAR ATTENDANT Patient Education You have been diagnosed with [...] Pudding Ice cream Calcium-fortified orange juice Calcium-fortified kyqyk-nv-xqu cereals Canned salmon or sardines with soft [...] other medicines you are taking. This includes tzsq-lvv-uzeerav or herbal medicines and supplements. Follow-up Keep [...] Irregular heartbeat Dizziness or lightheadedness Depression Confusion [employer] last reviewed this educational content on 07/22/201919991849-3428 [employer], [employer]. All rights reserved. This information is not intended as a substitute for professional medical care. Always follow your healthcare professional's instructions. ATTENDANT documented in this encounter Progress Notes Heber [...] file Gets together: Not on file Attends muslim service: Not on file Active member of [...] CALCIUM GROUP; Future - COMP. METABOLIC PANEL (85487); Future - VITAMIN D, 25-OH; Future Will [...] shoes to be removed for foot exam. ATTENDANT documented in this encounter Plan of Treatment Date Type Specialty Care Team Description 05/19/2020 Imm/Inj Visit Public Health & General Lázaro Price MD [address] [place], [place] [id number] Preventive Medicine Nurse, Rubina Pob Immunization 09/13/2020 Office Visit Endocrinology Diabetes & Kael Fagan MD Metabolism [address] [place] [address] [phone] Name Type Priority Associated Diagnoses Date/Ti me INTACT PTH [facility] LAB Routine Hypercalcemia 12:28 PM CAR ATTENDANT Name Type Priority Associated Diagnoses Order S [...] this encounter Results TRIIODOTHYRONINE (05/18/2020 12:28 PM CAR ATTENDANT) Pathologist Sig nature T3 78.0 (L) 97.0 - 170.0 ng/dL [facility] ES Specimen Blood Performing Organization Address City/State/Zipcode Phone Number [facility] CLIA: [id number] [place] [address] [place] [address] Blvd T4 FREE (05/18/2020 12:28 PM CAR ATTENDANT) Pathologist Sig nature FREE T4 0.97 0.78 - 2.20 ng/dL: [facility] Specimen Blood Performing Organization Address City/State/Zipcode Phone Number [facility] CLIA: [id number] [place] [address] VITAMIN D, 25-OH (05/18/2020 12:28 PM CAR ATTENDANT) Pathologist Sig nature VIT D 25OH 80 25 - 80 ng/mL [facility] Specimen Blood Narrative Performed At Deficiency: <20 ng/mL [facility] Insufficiency: 20-24 ng/mL Optimal: 25-80 ng/mL Performing Organization Address City/State/Zipcode Phone Number [facility] CLIA: [id number] [place] [address] [place] [address] COMP. METABOLIC PANEL (17899) (05/18/2020 12:28 PM CAR ATTENDANT) NA 139 135 - 145 [facility] mmol/L [facility] K 5.1 (H) 3.5 - 5.0 [facility] mmol/L [facility] CL 101 98 - 108 mmol/L [facility] CO2 TOTAL 29 23 - 31 mmol/L [facility] AGAP 9 2 - 16 [facility] BUN 27 (H) 7 - 23 mg/dL [facility] GLUCOSE 128 (H) 70 - 110 mg/dL [facility] CREATININE 1.01 0.50 - 1.04 [facility] mg/dL [facility] TOTAL BILI 0.5 0.1 - 1.1 mg/dL [facility] CALCIUM 11.1 (H) 8.6 - 10.6 [facility] mg/dL [facility] T PROTEIN 7.7 6.3 - 8.2 g/dL [facility] ALBUMIN 4.5 3.5 - 5.0 g/dL [facility] ALK PHOS 42 34 - 122 U/L [facility] ALTv 25 5 - 35 U/L [facility] AST(SGOT) 24 13 - 40 U/L [facility] eGFR Calculation 54.7 mL/min/1.73m2 [facility] ([facility] LAB[facility]ATORY [place]) eGFR Calculation 66.3 mL/min/1.73m2 [facility] LABORATORY Specimen Blood Narrative Performed At Association of Glomerular Filtration Rate (GFR) [facility] and Staging of Kidney Disease* [...] Address City/State/Zipcode Phone Number [facility] CLIA: [id number] [place] [address] documented in this encounter Visit Diagnoses Diagnosis Hypercalcemia - Primary Acquired hypothyroidism Unspecified hypothyroidism Vitamin D deficiency Unspecified vitamin D deficiency Controlled type 2 diabetes mellitus with out complication, without long-term current use of insulin Essential hypertension Unspecified essential hypertension documented in this encounter Insurance Payer Benefit Plan / Subscriber ID Effective Phone Address T e [facility] [id number] 2020-Prese Medic are [facility] MED[facility] HMO documented as of this encounter
[2020-05-23 23:29] LABS: Absolute Lymphocytes (CBC) 2.6 K/uL (0.7-4.9); Basophils % 0.7 % (0-1.3); Hematocrit 34.1 % (36.0-45.0); MPV 8.7 fL (7.6-11.3); RBC Red Blood Cell Count 3.88 M/uL (3.86-4.86)
[2020-05-23 23:47] LABS: ALT/SGPT 26 U/L (12-78); AST/SGOT 15 U/L (15-37); Albumin 3.9 g/dL (3.4-5.0); Alkaline Phosphatase 46 U/L (45-117); BUN Blood Urea Nitrogen 15 mg/dL (7-18); Bicarbonate 27 mmol/L (21-32); Bilirubin Direct < 0.1 mg/dL (0-0.2); Bilirubin Total 0.2 mg/dL (0.2-1.0); Glucose Level 155 mg/dL (74-106); Magnesium 1.8 mg/dL (1.8-2.4); NT PRO-BNP 321 pg/mL (<125); Potassium 3.8 mmol/L (3.5-5.1); Protein, Total 7.6 g/dL (6.4-8.2); Sodium Level 146 mmol/L (136-145); Troponin (Emerg Dept Use Only) 0.03 ng/mL (0.0-0.045)
[2020-05-24] MEDS ORDERED: NA CHLORIDE 0.9% 1,000 ML ONE (00:19)
[2020-05-24] MEDS ORDERED: KETOROLAC 30 MG/ML INJ ONE (01:01)
--- NOTE | 2020-05-24 01:25 | ER ---
Nurse's Notes [facility] Name: Cristal Felder Age: 65 yrs Sex: Female : 1955 Arrival Date: 05/23/2020 Time: 22:18 Bed 19 Private MD: Diagnosis: Chest pain, unspecified;Left upper back pain Presentation: 05/23 22:46 Chief complaint: Patient states: right sided chest pain that started this morning, em thought it would go away, denies N/V fever or cough. Coronavirus screen: Client denies travel out of the [place] in the last 14 days. Ebola Screen: Patient negative for fever greater than or equal to 101.5 degrees Fahrenheit, and additional compatible Ebola Virus Disease symptoms Patient denies exposure to infectious person. Patient denies travel to an Ebola-affected area in the 21 days before illness onset. No symptoms or risks identified at this time. Initial Sepsis Screen: Does the patient meet any 2 criteria? No. Patient's initial sepsis screen is negative. Does the patient have a suspected source of infection? No. Patient's initial sepsis screen is negative. Risk Assessment: Do you want to hurt yourself or someone else? Patient reports no desire to harm self or others. Onset of symptoms was May 23, 2020. 22:46 Method Of Arrival: Ambulatory em 22:46 Acuity: MARGIE 3 em Historical: - Allergies: 22:49 PENICILLINS; em 22:49 Tylenol-Codeine #3; em - PMHx: 22:49 Diabetes - NIDDM; Hypertension; em - PSHx: 22:49 None; em - Immunization history:: Adult Immunizations up to date. - Social history:: Smoking status: Patient denies any tobacco usage or history of. Screenin:55 Abuse screen: Denies threats or abuse. Nutritional screening: No deficits noted. ll2 Tuberculosis screening: No symptoms or risk factors identified. Fall Risk None identified. Assessment: 23:07 General: Appears in no apparent distress. Behavior is calm, cooperative, appropriate ll2 for age. Pain: Complains of pain in back and chest Pain radiates to back Pain began 1 day ago. Neuro: Level of Consciousness is awake, alert, obeys commands, Oriented to person, place, time, situation. Cardiovascular: Patient's skin is warm and dry. Respiratory: Airway is patent Respiratory effort is even, unlabored, Respiratory pattern is regular, symmetrical. GI: No signs and/or symptoms were reported involving the gastrointestinal system. : No signs and/or symptoms were reported regarding the genitourinary system. EENT: No signs and/or symptoms were reported regarding the EENT system. Derm: Skin is intact, is healthy with good turgor, Skin is pink, warm \T\ dry. Musculoskeletal: Circulation, motion, and sensation intact. Range of motion: intact in all extremities. 05/24 00:08 Reassessment: Patient and/or family updated on plan of care and expected duration. Pain ll2 level reassessed. Patient is alert, oriented x 3, equal unlabored respirations, skin warm/dry/pink. 01:21 Reassessment: Patient and/or family updated on plan of care and expected duration. Pain ll2 level reassessed. Patient is alert, oriented x 3, equal unlabored respirations, skin warm/dry/pink. Vital Signs: 05/23 22:46 BP 170 / 91; Pulse 63; Resp 18; Temp 98.6(O); Pulse Ox 100% on R/A; Weight 92.08 kg; em Height 5 ft. 2 in. (157.48 cm); Pain 7/10; 23:15 BP 153 / 88; Pulse 75; Resp 18; Pulse Ox 98% on R/A; ll2 02 00:08 BP 142 / 78; Pulse 72; Resp 19; Pulse Ox 99% on R/A; ll2 01:21 BP 125 / 70; Pulse 69; Resp 18; Pulse Ox 98% on R/A; ll2 05/23 22:46 Body Mass Index 37.13 (92.08 kg, 157.48 cm) em ED Course: 05/23 22:18 Patient arrived in ED. am4 22:49 Triage completed. em 22:49 Arm band placed on. em 22:55 Patient has correct armband on for positive identification. Placed in gown. Bed in low ll2 position. Call light in reach. Side rails up X 1. environmental monitoring technician on. Pulse ox on. NIBP on. 22:55 EKG done, by ED staff. Initial lab(s) drawn, by me, sent to lab. Inserted saline lock: ll2 20 gauge in right antecubital area, using aseptic technique. Blood collected. 22:59 Keshia Baez FNP-C is [facility]. kb 22:59 Antonio Gage MD is Attending Physician. kb 23:06 Fatou Davila RN is Primary Nurse. ll2 23:34 XRAY Chest (1 view) In Process Unspecified. EDRI 05/24 01:39 No provider procedures requiring assistance completed. IV discontinued, intact, ll2 bleeding controlled, No redness/swelling at site. Pressure dressing applied. Patient maintains SpO2 saturation greater than 95% on room air. Administered Medications: 00:07 Drug: NS 0.9% 1000 ml Route: IV; Rate: 1000 ml; Site: right antecubital; ll2 01:05 Follow up: Response: No adverse reaction; IV Status: Completed infusion; IV Intake: ll2 1000ml 00:46 Drug: TORadol - Ketorolac 15 mg Route: IVP; Site: right antecubital; ll2 01:22 Follow up: Response: No adverse reaction ll2 Intake: 01:05 IV: 1000ml; Total: 1000ml. ll2 Outcome: 01:25 Discharge ordered by . rn 01:39 Discharged to home ambulatory. ll2 01:39 Condition: stable 01:39 Discharge instructions given to patient, Instructed on discharge instructions, follow up and referral plans. medication usage, Demonstrated understanding of instructions, follow-up care, medications, Prescriptions given X 2. 01:43 Patient left the ED. ll2 Signatures: Dispatcher [employer] [facility] Keshia Baez FNP-C FNP-Mason Christiansen RN ALVERTO Antonio Gage MD MD rn [place], Lacie, Marbella Alvarado RN [facility]
--- NOTE | 2020-05-24 01:26 | EDPHYS ---
Physician Documentation [facility] Name: Cristal Felder Age: 65 yrs Sex: Female : 1955 Arrival Date: 05/23/2020 Time: 22:18 Bed 19 Private MD: ED Physician nAtonio Gage HPI: 05/24 00:23 This 65 yrs old Black Female presents to ER via Ambulatory with complaints of Chest kb Pain, Back Pain. 00:23 The patient or guardian reports chest pain that is located primarily in the substernal kb area, left lateral posterior chest and left lateral anterior chest. Onset: this morning. The pain does not radiate. Associated signs and symptoms: The patient has no apparent associated signs or symptoms. The chest pain is described as aching, cramping. Duration: The patient or guardian reports a single episode, that is still ongoing. Modifying factors: The symptoms are alleviated by nothing. the symptoms are aggravated by movement. Severity of pain: At its worst the pain was moderate in the emergency department the pain is unchanged. The patient has not experienced similar symptoms in the past. The patient has not recently seen a physician. Pt states she woke up with left chest and back pain. States pain is mostly in her back and worse with movement. Historical: - Allergies: 05/23 22:49 PENICILLINS; em 22:49 Tylenol-Codeine #3; em - PMHx: 22:49 Diabetes - NIDDM; Hypertension; em - PSHx: 22:49 None; em - Immunization history:: Adult Immunizations up to date. - Social history:: Smoking status: Patient denies any tobacco usage or history of. ROS: 05/24 00:21 Constitutional: Negative for fever, chills, and weight loss, Respiratory: Negative for kb shortness of breath, cough, wheezing, and pleuritic chest pain, Abdomen/GI: Negative for abdominal pain, nausea, vomiting, diarrhea, and constipation, : Negative for injury, bleeding, discharge, and swelling, MS/Extremity: Negative for injury and deformity, Skin: Negative for injury, rash, and discoloration, Neuro: Negative for headache, weakness, numbness, tingling, and seizure. Cardiovascular: Positive for chest pain, with movement, of the left lateral posterior chest and left lateral anterior chest. Back: Positive for pain at rest, pain with movement, of the left scapular area, left subscapular area and thoracic area. Exam: 00:23 Constitutional: This is a well developed, well nourished patient who is awake, alert, kb and in no acute distress. Head/Face: Normocephalic, atraumatic. Chest/axilla: Normal chest wall appearance and motion. Nontender with no deformity. No lesions are appreciated. Cardiovascular: Regular rate and rhythm with a normal S1 and S2. No gallops, murmurs, or rubs. Normal PMI, no JVD. No pulse deficits. Respiratory: Lungs have equal breath sounds bilaterally, clear to auscultation and percussion. No rales, rhonchi or wheezes noted. No increased work of breathing, no retractions or nasal flaring. Abdomen/GI: Soft, non-tender, with normal bowel sounds. No distension or tympany. No guarding or rebound. No evidence of tenderness throughout. Skin: Warm, dry with normal turgor. Normal color with no rashes, no lesions, and no evidence of cellulitis. MS/ Extremity: Pulses equal, no cyanosis. Neurovascular intact. Full, normal range of motion. Neuro: Awake and alert, GCS 15, oriented to person, place, time, and situation. Cranial nerves II-XII grossly intact. Motor strength 5/5 in all extremities. Sensory grossly intact. Cerebellar exam normal. Normal gait. Vital Signs: 05/23 22:46 BP 170 / 91; Pulse 63; Resp 18; Temp 98.6(O); Pulse Ox 100% on R/A; Weight 92.08 kg; em Height 5 ft. 2 in. (157.48 cm); Pain 7/10; 23:15 BP 153 / 88; Pulse 75; Resp 18; Pulse Ox 98% on R/A; ll2 05/24 00:08 BP 142 / 78; Pulse 72; Resp 19; Pulse Ox 99% on R/A; ll2 01:21 BP 125 / 70; Pulse 69; Resp 18; Pulse Ox 98% on R/A; ll2 05/23 22:46 Body Mass Index 37.13 (92.08 kg, 157.48 cm) em MDM: 05/23 22:59 Patient medically screened. kb 05/24 00:21 Data reviewed: vital signs, nurses notes. Data interpreted: Pulse oximetry: on room air kb is 99 %. Interpretation: normal. 00:34 Counseling: I had a detailed discussion with the patient and/or guardian regarding: the kb historical points, exam findings, and any diagnostic results supporting the discharge/admit diagnosis, lab results, radiology results, the need for outpatient follow up, a family practitioner. ED course: No EKG changes from comparison from 2009. 01:24 Differential diagnosis: acute myocardial infarction, acute pericarditis, anxiety, rn coronary artery disease esophagitis, gastroesophageal reflux disease (GERD), pleurisy, pneumothorax, stable angina. Special discussion: I discussed with the patient/guardian in detail that at this point there is no indication for admission to the hospital. It is understood, however, that if the symptoms persist or worsen the patient needs to return immediately for re-evaluation. ED course: Repeat trop neg. Will dc home with pcp f/u. No changes in ECG.. 05/23 22:59 Order name: Basic Metabolic Panel; Complete Time: 23:56 kb 05/23 22:59 Order name: CBC with Diff; Complete Time: 23:32 kb 05/23 22:59 Order name: LFT's; Complete Time: 23:56 kb 05/23 22:59 Order name: Magnesium; Complete Time: 23:56 kb 05/23 22:59 Order name: NT PRO-BNP; Complete Time: 23:56 kb 05/23 22:59 Order name: PT-INR; Complete Time: 23:32 kb 05/23 22:59 Order name: Troponin (emerg Dept Use Only); Complete Time: 23:56 kb 05/23 22:59 Order name: XRAY Chest (1 view) kb 05/23 22:59 Order name: EKG; Complete Time: 23:09 kb 05/23 22:59 Order name: Cardiac monitoring; Complete Time: 23:06 kb 05/23 22:59 Order name: EKG - Nurse/Tech; Complete Time: 23:06 kb 05/24 00:31 Order name: Troponin (emerg Dept Use Only); Complete Time: 01:22 kb 05/23 22:59 Order name: IV Saline Lock; Complete Time: 23:31 kb 05/23 22:59 Order name: Labs collected and sent; Complete Time: 23:06 kb 05/23 22:59 Order name: O2 Per Protocol; Complete Time: 23:06 kb 05/23 22:59 Order name: O2 Sat Monitoring; Complete Time: 23:06 kb Administered Medications: 00:07 Drug: NS 0.9% 1000 ml Route: IV; Rate: 1000 ml; Site: right antecubital; ll2 01:05 Follow up: Response: No adverse reaction; IV Status: Completed infusion; IV Intake: ll2 1000ml 00:46 Drug: TORadol - Ketorolac 15 mg Route: IVP; Site: right antecubital; ll2 01:22 Follow up: Response: No adverse reaction ll2 Disposition: 02:14 Co-signature as Attending Physician, Antonio Gage MD. rn Disposition: 05/24/20 01:25 Discharged to Home. Impression: Chest pain, unspecified, Left upper back pain. - Condition is Stable. - Discharge Instructions: Musculoskeletal Pain, Nonspecific Chest Pain, Etab-yn-Jjel, Back Pain, Adult, Gmqd-fx-[id number]. - Prescriptions for Ibuprofen 800 mg Oral Tablet - take 1 tablet by ORAL route every 8 hours As needed take with food; 30 tablet. Cyclobenzaprine 10 mg Oral Tablet - take 1 tablet by ORAL route every 8 hours As needed; 21 tablet. - Medication Reconciliation Form, Thank You Letter, Antibiotic Education, Prescription Opioid Use form. - Follow up: Emergency Department; When: As needed; Reason: Worsening of condition. Follow up: Private Physician; When: 2 - 3 days; Reason: Recheck today's complaints, Continuance of care, Re-evaluation by your physician. Signatures: Dispatcher [employer] Keshia Martínez, JULIO-C CORE DRILL OPERATOR-Mason Christiansen, Antonio Tuttle RN, MD MD rn [place], Lacie, RN RN ll2 Corrections: (The following items were deleted from the chart) 01:43 01:25 05/24/2020 01:25 Discharged to Home. Impression: Chest pain, unspecified; Left ll2 upper back pain. Condition is Stable. Discharge Instructions: Musculoskeletal Pain, Nonspecific Chest Pain, Jdmu-cc-Rjbe, Back Pain, Adult, Hoyq-ea-Rdzc. Prescriptions for Ibuprofen 800 mg Oral Tablet - take 1 tablet by ORAL route every 8 hours As needed take with food; 30 tablet, Cyclobenzaprine 10 mg Oral Tablet - take 1 tablet by ORAL route every 8 hours As needed; 21 tablet. and Forms are Medication Reconciliation Form, Thank You Letter, Antibiotic Education, Prescription Opioid Use. Follow up: Emergency Department; When: As needed; Reason: Worsening of condition. Follow up: Private Physician; When: 2 - 3 days; Reason: Recheck today's complaints, Continuance of care, Re-evaluation by your physician. rn
[2020-05-24 06:20] VITALS: TEMP 98.6
[2020-05-24 06:24] VITALS: BP 125/70; O2SAT 98
--- NOTE | 2020-05-24 12:53 | EKG ---
Test Date: 2020-05-23 Test Time: 23:03:03 Advanced Manufacturing Vice President: [employer] MEASUREMENT RESULTS: Intervals: Rate: 69 VT: 182 QRSD: 82 QT: 398 QTc: 426 [place]: P: 58 VT: 182 QRS: -12 T: 172 INTERPRETIVE STATEMENTS: Normal sinus rhythm Left ventricular hypertrophy with repolarization abnormality Abnormal ECG Compared to ECG 10/27/2009 13:56:42 No significant changes Electronically Signed On 05-24-20 12:53:05 CNC FIELD SERVICE ENGINEER by Rajinder Soriano
--- NOTE | 2020-05-24 16:30 | RAD REPORT ---
EXAM DESCRIPTION: CHEST PAIN COMPARISON: None. TECHNIQUE: XR CHEST 1 VIEW 05/23/2020 10:59 PM RECEIVING SPECIALIST FINDINGS: The heart is mildly enlarged. Lungs are clear without consolidation, atelectasis, mass or edema. There is no pleural effusion. There is no pneumothorax. There are no acute osseous findings. IMPRESSION: Clear lungs. Electronically signed by: Devaughn Sullivan MD 05/23/2020 11:36 PM RECEIVING SPECIALIST Due to temporary technical issues with the PACS/Fluency reporting system, reports are being signed by the in house radiologists without review as a courtesy to insure prompt reporting. The interpreting radiologist is fully responsible for the content of the report.
== END 2020-05-24 01:43 | disposition home or self-care (01) ==
LOC: ER 22:12
DX: R07.9 Chest pain, unspecified (principal); M54.6 Pain in thoracic spine; E11.9 Type 2 diabetes mellitus without complications; I10 Essential (primary) hypertension
CPT/HCPCS: 93005; 85025; 80048; 36415; 83735; 85610; 80076; 84484 ×2; 83880; 71045; J7030; 96361; 96374; 99285